=== PATIENT | female | born 1985 | race Caucasian/White ===

== ENCOUNTER → 2016-11-18 | Outpatient (CLI) | payer OTHER ==
[~2016-11-18] MED LIST: AMOX1TAB12 PO; AZIT250T81 PO; [UNRECOGNIZED DRUG - CODE] PO
[2016-11-18 19:53] VITALS: BP 118/83
--- NOTE | 2016-11-18 19:53 | Urgent Care T Sheet Gen (E) ---
Intake General Temperature (Fahrenheit): 97.3 Pulse: 75 Blood Pressure Systolic: 118 Blood Pressure Diastolic: 83 Respirations: 20 SPO2: 99 Description of Symptoms Patient presents with illness since Nov 08. Patient complains of sinus congestion, OROPEZA and R ear pain, which just started today. No fever. Been using a Neti pot for congestion which helps to break things up. Been treating pain with Tylenol. Respiratory Constitutional Symptoms: No Fever, Malaise EENTM: Ear pain Nose Congestion Respiratory: No symptoms reported Cardiovascular: No symptoms reported Gastrointestinal/Abdominal: No symptoms reported All Other Systems Reviewed Remaining Systems: All other systems reviewed with negative findings Physical Exam Physical Exam General Appearance: WD/WN No apparent distress Eyes, Ears, Nose, Throat Ex: Pharynx normal (cobblestone appearance) TM abnormal (R) (red, bulging) Other (red, swollen nasal turbinates with purulent drainage. tender over maxillary sinuses.) Neck Exam: SuppleNo Lymphadenopathy Respiratory Exam: Lungs clear Normal breath sounds Cardiovascular Exam: Regular rate, rhythm Departure Urgent Care Impression Impression: Primary Impression: Otitis media Qualified Code: H66.001 - Acute suppurative otitis media without spontaneous rupture of ear drum, right ear Additional Impression: Sinusitis Qualified Code: J01.00 - Acute maxillary sinusitis, unspecified Departure Disposition: HOME OR SELF-CARE Condition: Stable Referrals: SHERYL BRANCH MD (PCP) Additional Instructions: I started the patient on Augmentin BID x 10 days for treatment. Offered to prescribed Prednisone for a few days but she declined. States she doesn't like the way it makes her feel. Treat pain with Tylenol and/or Motrin. Rest. Fluids May continue with neti pot and may add Mucinex as needed Return if no better Patient understands DC instructions. All questions were answered. Scripts Amoxicillin/Clavulanate Potassium (Augmentin 875mg/125mg)1 Each Tablet1 Tab PO BID #20 TAB Ref 0 Prov:AMY PEREZ 11/18/16 End of report . AMY PEREZ Nov 18, 2016 19:53
== END ==
LOC: MHUC 19:39
PROVIDERS: ATTEND Physician Assistant
DX: H66.001 Acute suppurative otitis media without spontaneous rupture of ear drum, right ear (principal); J01.00 Acute maxillary sinusitis, unspecified
CPT/HCPCS: 99213

== ENCOUNTER → 2016-12-09 | Outpatient (CLI) | payer OTHER | LOC: LAB 11:16 | PROVIDERS: ATTEND Physician Assistant | DX: R05 Cough (principal) | CPT/HCPCS: 87486; 87581; 87633; 87798 ==

== ENCOUNTER → 2016-12-11 | Outpatient (CLI) | payer OTHER ==
[2016-12-11 18:14] VITALS: BP 150/89
== END ==
LOC: MHUC 15:52
PROVIDERS: ATTEND Physician Assistant
DX: R05 Cough (principal)
CPT/HCPCS: 99213

== ENCOUNTER → 2016-12-11 | Outpatient (CLI) | payer OTHER ==
[2016-12-11 17:04] LABS: MEAN CORPUSCULAR HEMOGLOBIN 30.1 PG (26.0-34.0); MEAN CORPUSCULAR HGB CONC 34.2 g/dL (31.0-37.0); MEAN CORPUSCULAR VOLUME 88 FL (80-100); MEAN PLATELET VOLUME 10.5 FL (6.0-9.5); PLATELET COUNT 298 10^3uL (150-450); WHITE BLOOD COUNT 10.76 10^3uL (4.0-11.0)
[2016-12-11 17:50] LABS: BAND NEUTROPHILS % 1 % (0-6); EOSINOPHILS % 0 % (0-4); LYMPHOCYTES # 1.4 #; MONOCYTES # 0.2 #; MONOCYTES % 2 % (3-11); RBC MORPH NORMAL (NORMAL); SEGMENTED NEUTROPHILS % 84 % (51-67); TOTAL CELLS COUNTED 100
== END ==
LOC: LAB 16:46
PROVIDERS: ATTEND Physician Assistant
DX: R05 Cough (principal)
CPT/HCPCS: 36415; 71020; 85025